=== PATIENT | female | born 1970 | race Caucasian/White ===

== ENCOUNTER 2016-07-23 18:33 | Emergency (ER) | payer OTHER ==
[~2016-07-23] VITALS: Ht 154.9 cm; Wt 63.5 kg
[2016-07-23 18:35] VITALS: BP 130/86; PULSE 74; RESP 20; TEMP 98; O2SAT 100
--- NOTE | 2016-07-23 20:18 | PD ---
HPI Chief Complaint: Seizure Time Seen by Provider: 20:18 Travel History International Travel<30 days: No Contact w/Intl Traveler<30days: No Traveled to known affect area: No History of Present Illness HPI 45-year-old female with history of seizures presents to the ED for evaluation approximately 7 hours following a witnessed seizure. The patient's boyfriend is at bedside and helps to provide a history. He states he witnessed the patient becomes tense and nonresponsive. He states that he guided her to the ground but she fell onto her outstretched arms and hit her head on the wall. States that the tension and unresponsiveness lasted approximately 3-4 minutes before resolving spontaneously. He states that the patient was confused for approximately 30 seconds to 1 minute following this episode. On presentation the patient endorses bilateral wrist pain, pain in the posterior head. She also complains of numbness and tingling of the second digit of the right hand and second digit of the right foot. She denies headache, dizziness, vision changes , chest pain, SOB, abdominal pain, N/V, dysuria, hematuria, weakness or limitation to ROM of the extremities bilaterally. She states that she initially was feeling "fine" and did not want to seek treatment. However, during the course of the day her pains got worse so she came to the ED. She states that she took her last Ativan today and has been unable to find a provider to refill it. She endorses compliance with prescribed Ativan and Topimax. She does not currently have a neurologist. PFSH Past Medical History Respiratory: Yes (ASTHMA) Social History Tobacco Use: Yes Allergies-Medications (Allergen,Severity, Reaction): Coded Allergies: No Known Allergies (Unverified , 07/23/16) Reported Meds & Prescriptions Reported Meds & Active Scripts Active Lorazepam 1 Mg Tab 1 Mg PO BID Reported Topamax (Topiramate) 100 Mg Tab 100 Mg PO BID Ativan (Lorazepam) 1 Mg Tab 1 Mg PO Q8H PRN Review of Systems Except as stated in HPI: all other systems reviewed are Neg Physical Exam Narrative GENERAL: Well-nourished, well-developed white female in no acute distress. SKIN: Warm and dry. There is tender ecchymosis of the posterior occiput. There is a old, superficial, crusted, linear abrasion on the back. There is a faint ecchymosis under the right eye. Thorough evaluation reveals no other edema, ecchymosis, abrasion, or laceration of the skin. Multiple tattoos. HEAD: Normocephalic. No raccoon eyes or gomez sign. ++ tenderness to palpation of the skull. No bony step-offs. No tenderness to palpation of the facial bones. No malocclusion of the teeth. EYES: No scleral icterus. No injection or drainage. PERRLA. EOMI. ENT: Pearly cardoza tympanic membrane is bilaterally. Nasal mucosa is moist. Oropharynx without erythema, edema or exudate. NECK: Supple, trachea midline. No JVD or lymphadenopathy. No midline tenderness to palpation. Patient retains full, active, painless range of motion of the neck. CARDIOVASCULAR: Regular rate and rhythm without murmurs, gallops, or rubs. 2+ DP and radial pulses bilaterally. RESPIRATORY: Breath sounds clear and equal bilaterally. No accessory muscle use. GASTROINTESTINAL: Abdomen soft, non-tender, nondistended. + Bowel sounds MUSCULOSKELETAL: No cyanosis, or edema. No tenderness to palpation or limitations to range of motion of the joints of the upper and lower extremities bilaterally. NEUROLOGICAL: Awake and alert. Cranial nerves II through XII intact. Motor and sensory grossly within normal limits. 5/5 muscle strength in all muscle groups. Normal speech. BACK: Nontender without obvious deformity. No CVA tenderness. No midline tenderness. Data Data Last Documented VS Vital Signs Date Time Temp Pulse Resp B/P Pulse Ox O2 Delivery O2 Flow Rate FiO2 07/23/16 20:53 18 98 Room Air 07/23/16 20:53 72 07/23/16 18:35 98.0 130/86 Orders Wrist, Complete ([id number]) (07/23/16 20:39) Wrist, Complete ([id number]) (07/23/16 20:39) Ct Brain W/O Iv Contrast(Rout) (07/23/16 20:39) Complete Blood Count With Diff (07/23/16 20:39) Ecg Monitoring (07/23/16 20:39) Iv Access Insert/Monitor (07/23/16 20:39) Oximetry (07/23/16 20:39) Comprehensive Metabolic Panel (07/23/16 20:39) Sodium Chlor 0.9% 1000 Ml Inj (Ns 1000 M (07/23/16 20:39) Sodium Chloride 0.9% Flush (Ns Flush) (07/23/16 20:45) Urinalysis - C+S If Indicated (07/23/16 20:39) Lorazepam Inj (Ativan Inj) (07/23/16 22:15) Labs Laboratory Tests Test 07/23/16 07/23/16 20:20 20:50 Urine Color YELLOW Urine Turbidity HAZY Urine pH 6.5 Urine Specific Alexander 1.018 Urine Protein NEG mg/dL Urine Glucose (UA) NEG mg/dL Urine Ketones NEG mg/dL Urine Occult Blood NEG Urine Nitrite NEG Urine Bilirubin NEG Urine Urobilinogen LESS THAN 2.0 MG/DL Urine Leukocyte Esterase NEG Urine Squamous Epithelial <1 /hpf Cells Microscopic Urinalysis Comment CULT NOT INDICATED White Blood Count 10.8 TH/MM3 Red Blood Count 4.85 MIL/MM3 Hemoglobin 11.0 GM/DL Hematocrit 36.0 % Mean Corpuscular Volume 74.2 FL Mean Corpuscular Hemoglobin 22.6 PG Mean Corpuscular Hemoglobin 30.4 % Concent Red Cell Distribution Width 18.9 % Platelet Count 211 TH/MM3 Mean Platelet Volume 8.9 FL Neutrophils (%) (Auto) 57.9 % Lymphocytes (%) (Auto) 31.9 % Monocytes (%) (Auto) 8.3 % Eosinophils (%) (Auto) 1.3 % Basophils (%) (Auto) 0.6 % Neutrophils # (Auto) 6.2 TH/MM3 Lymphocytes # (Auto) 3.4 TH/MM3 Monocytes # (Auto) 0.9 TH/MM3 Eosinophils # (Auto) 0.1 TH/MM3 Basophils # (Auto) 0.1 TH/MM3 CBC Comment AUTO DIFF Differential Comment AUTO DIFF CONFIRMED Platelet Estimate NORMAL Platelet Morphology Comment NORMAL Ovalocytes 1+ Sodium Level 145 MEQ/L Potassium Level 4.0 MEQ/L Chloride Level 115 MEQ/L Carbon Dioxide Level 25.3 MEQ/L Anion Gap 5 MEQ/L Blood Urea Nitrogen 13 MG/DL Creatinine 0.87 MG/DL Estimat Glomerular Filtration 70 ML/MIN Rate Random Glucose 92 MG/DL Calcium Level 8.3 MG/DL Total Bilirubin 0.2 MG/DL Aspartate Amino Transf 13 U/L (AST/SGOT) Alanine Aminotransferase 24 U/L (ALT/SGPT) Alkaline Phosphatase 50 U/L Total Protein 6.6 GM/DL Albumin 2.9 GM/DL MDM Medical Decision Making Medical Screen Exam Complete: Yes Emergency Medical Condition: Yes Differential Diagnosis Seizure versus contusion versus wrist fracture versus skull fracture versus ICH versus malingering versus other Narrative Course 45-year-old female with history of seizures presents to the ED for evaluation approximately 7 hours following a witnessed seizure. The patient's boyfriend is at bedside and helps to provide a history. He states he witnessed the patient becomes tense and nonresponsive for approximately 3-4 minutes before resolving spontaneously.. He states that he guided her to the ground but she fell onto her outstretched arms and hit her head on the wall. Describes a postictal period lasting approximately 30 seconds to 1 minute. On presentation the patient endorses bilateral wrist pain, pain in the posterior head, numbness and tingling of the second digits of the right hand and right foot. She denies headache, dizziness, vision changes, chest pain, SOB, abdominal pain, N/V, dysuria, hematuria, weakness or limitation to ROM of the extremities bilaterally. She endorses compliance with prescribed Ativan and Topimax. She does not currently have a neurologist, took her last does of Ativan today. Vitals reviewed. Physical exam reveals a white female in no acute distress. Some tender ecchymosis to the posterior occipit, faint ecchymosis under the right eye, bruising of bilateral palms with snuffbox tenderness. No limitations or range of motion of the wrist. She is not postictal. IV was established. Patient was placed on continuous monitoring. She was administered 0.5 mg Ativan. No concerning abnormalities of CBC, CMP and UA. Head CT normal per radiology read. Bilateral wrist x-rays without evidence of acute bony injury per radiology read. I reviewed [facility] and the patient was receiving Ativan steadily until December from a single provider. Her account of moving out of state for a few months and returning does seem reasonable to me. She has primary care and is awaiting neurology referral. I'll prescribe 15 day supply of Ativan. I informed the patient that these medications are only provided at the discretion of the provider and that it's highly unlikely she would be able to get a refill of these medications through the ED at a future date. She indicated understanding and is agreeable to the care plan. Patient is stable discharged home. Diagnosis Primary Impression: Seizure Additional Impressions: Medication refill Contusion of scalp, initial encounter Referrals: Neurologist Patient Instructions: Contusion in Adults (ED), General Instructions, Recurrent Seizures in Adults (ED) Additional Instructions: Rest, hydrate. Return to normal, gentle activity as tolerated. Take Topamax as prescribed. Take Ativan 1 mg twice a day. Follow-up with the neurologist as discussed. Return to the ED for any urgent or emergent medical condition. Med/Other Pt SpecificInfo: Prescription(s) given Scripts Lorazepam 1 Mg Tab1 Mg PO BID #30 TAB Ref 0 Prov:Shakira Dorman MD 07/23/16 Disposition: 01 DISCHARGE HOME Condition: Stable Ashely Tam Jul 23, 2016 20:18 Return to the ED for any urgent or emergent medical condition. Med/Other Pt SpecificInfo: Prescription(s) given Scripts Lorazepam 1 Mg Tab1 Mg PO BID #30 TAB Ref 0 Prov:Shakira Dorman MD 07/23/16 Disposition: 01 DISCHARGE HOME Condition: Stable Ashely Tam Jul 23, 2016 20:18
[2016-07-23] MEDS ORDERED: SODIUM CHLOR 0.9% 1000 ML INJ 1,000 ML IV ONE (20:39)
[2016-07-23] MEDS ORDERED: SODIUM CHLORIDE 0.9% FLUSH 10 ML FLUSH IVF PRN (20:45)
[2016-07-23 20:53] VITALS: RESP 18; O2SAT 98
[2016-07-23] MEDS ORDERED: TOPA100T11 PO (21:13)
[2016-07-23] MEDS ORDERED: LORA-474 PO (21:13)
--- NOTE | 2016-07-23 21:32 | RADRPT ---
EXAM DATE/TIME: 07/23/2016 21:13 [facility] COMPARISON: No previous studies available for comparison. INDICATIONS : Seizure today. RADIATION DOSE: 40.92 CTDIvol (mGy) MEDICAL HISTORY : Seizures. Asthma. SURGICAL HISTORY : None. ENCOUNTER: Initial ACUITY: 1 day PAIN SCALE: 0/10 LOCATION: cranial TECHNIQUE: Multiple contiguous axial images were obtained of the head. Using automated exposure control and adj ustment of the mA and/or kV according to patient size, radiation dose was kept as low as reasonably a chievable to obtain optimal diagnostic quality images. FINDINGS: CEREBRUM: The ventricles are normal for age. No evidence of midline shift, mass lesion, hemorrhage or acute in farction. No extra-axial fluid collections are seen. POSTERIOR FOSSA: The cerebellum and brainstem are intact. The 4th ventricle is midline. The cerebellopontine angle i s unremarkable. EXTRACRANIAL: The visualized portion of the orbits is intact. SKULL: The calvaria is intact. No evidence of skull fracture. CONCLUSION: Negative noncontrast CT brain. Jackson Murphy MD on July 23, 2016 at 21:30 Board Certified Radiologist. This report was verified electronically.
--- NOTE | 2016-07-23 21:32 | RADRPT ---
EXAM DATE/TIME: 07/23/2016 21:08 [facility] COMPARISON: No previous studies available for comparison. INDICATIONS : Pain from fall. MEDICAL HISTORY : None. SURGICAL HISTORY : None. ENCOUNTER: Initial ACUITY: 1 day PAIN SCORE: 4/10 LOCATION: Right wrist. FINDINGS: Three view examination of the right wrist demonstrates no soft tissue swelling, dislocation, or fract ure. The carpal bones are in normal alignment. The joint spaces are maintained. Incidental note of negative ulnar variance. Bony mineralization is normal. CONCLUSION: No evidence of recent injury. Jackson Murphy MD on July 23, 2016 at 21:29 Board Certified Radiologist. This report was verified electronically.
[2016-07-23 21:34] LABS: AUTOMATED NEUTROPHIL # 6.2 TH/MM3 (1.8-7.7); BASOPHIL # 0.1 TH/MM3 (0-0.2); BASOPHIL % 0.6 % (0.0-2.0); EOSINOPHIL # 0.1 TH/MM3 (0-0.4); EOSINOPHIL % 1.3 % (0.0-4.0); LYMPH % 31.9 % (9.0-44.0); LYMPHOCYTE # 3.4 TH/MM3 (1.0-4.8); MEAN CELL VOLUME 74.2 FL (80.0-100.0); MEAN CORPUSCULAR HEMOGLOBIN 22.6 PG (27.0-34.0); MEAN CORPUSCULAR HGB CONC 30.4 % (32.0-36.0); MONO % 8.3 % (0.0-8.0); NEUT % 57.9 % (16.0-70.0); PLATELET COUNT 211 TH/MM3 (150-450); RED BLOOD COUNT 4.85 MIL/MM3 (4.00-5.30); RED CELL DISTRIBUTION WIDTH 18.9 % (11.6-17.2); WHITE BLOOD COUNT 10.8 TH/MM3 (4.0-11.0)
[2016-07-23 21:37] LABS: HEMO FLAGS AUTO DIFF
--- NOTE | 2016-07-23 21:40 | RADRPT ---
EXAM DATE/TIME: 07/23/2016 21:08 [facility] COMPARISON: No previous studies available for comparison. INDICATIONS : Pain from fall. MEDICAL HISTORY : None. SURGICAL HISTORY : None. ENCOUNTER: Initial ACUITY: 1 day PAIN SCORE: 4/10 LOCATION: Left wrist. FINDINGS: Three view examination of the left wrist demonstrates no soft tissue swelling, dislocation, or fractu re. The carpal bones are in normal alignment. Negative ulnar variance. The joint spaces are mainta ined. Bony mineralization is normal. CONCLUSION: No evidence of recent bony injury. Jackson Murphy MD on July 23, 2016 at 21:38 Board Certified Radiologist. This report was verified electronically.
[2016-07-23 21:41] LABS: BLOOD, URINE NEG (NEG); COMMENT (UR) CULT NOT INDICATED; CULTURE IF INDICATED CULT NOT INDICATED; GLUCOSE,URINE NEG (NEG); KETONE, URINE NEG (NEG); NITRITE,URINE NEG (NEG); PH, URINE 6.5 (5.0-8.5); SQUAMOUS EPITHELIAL CELL URINE <1 /hpf (0-5); URINE COLOR YELLOW (YELLW/STRAW)
[2016-07-23 21:54] LABS: ANION GAP 5 MEQ/L (5-15); BICARBONATE 25.3 MEQ/L (21.0-32.0); BLOOD UREA NITROGEN 13 MG/DL (7-18); CHLORIDE 115 MEQ/L (98-107); GLOMERULAR FILTRATION RATE 70 ML/MIN (>89); SODIUM (NA) 145 MEQ/L (136-145)
[2016-07-23 21:59] LABS: ALKALINE PHOSPHATASE 50 U/L (45-117); ALT (GPT) 24 U/L (10-53); AST (GOT) 13 U/L (15-37); TOTAL BILIRUBIN ADULT 0.2 MG/DL (0.2-1.0)
[2016-07-23 22:01] LABS: OVALOCYTES 1+ (NORMAL); PLATELET ESTIMATE SMEAR NORMAL (NORMAL); PLATELET MORPHOLOGY NORMAL (NORMAL); SCAN/DIFF AUTO DIFF CONFIRMED
[2016-07-23] MEDS ORDERED: LORA1TAB12 PO (22:10)
[2016-07-23] MEDS ORDERED: LORazepam 2 MG/ML VIAL IM ONE (22:15)
== END 2016-07-24 00:01 | disposition home or self-care (01) ==
LOC: NEPC 18:33
DX: R56.9 Unspecified convulsions (principal); S00.03XA Contusion of scalp, initial encounter; W18.39XA Other fall on same level, initial encounter; Y92.009 Unspecified place in unspecified non-institutional (private) residence as the place of occurrence of the external cause; Z72.0 Tobacco use
CPT/HCPCS: 70450; 73110; 80053; 81001; 85025; 96360; 96372; 99284; J2060; J7030

== ENCOUNTER 2016-08-12 13:22 | Emergency (ER) | payer MEDICAID, OTHER ==
[~2016-08-12] VITALS: Ht 154.9 cm; Wt 67.0 kg
[~2016-08-12 13:22] MED LIST: LORA-474 PO; LORA1TAB12 PO; TOPA100T11 PO
[2016-08-12 13:24] VITALS: BP 126/79; PULSE 98; RESP 14; TEMP 98.2; O2SAT 99
[2016-08-12 14:24] LABS: AUTOMATED NEUTROPHIL # 5.8 TH/MM3 (1.8-7.7); BASOPHIL # 0.1 TH/MM3 (0-0.2); BASOPHIL % 0.6 % (0.0-2.0); EOSINOPHIL # 0.2 TH/MM3 (0-0.4); EOSINOPHIL % 1.7 % (0.0-4.0); HEMATOCRIT 36.7 % (35.0-46.0); LYMPH % 34.3 % (9.0-44.0); LYMPHOCYTE # 3.5 TH/MM3 (1.0-4.8); MEAN CELL VOLUME 72.6 FL (80.0-100.0); MEAN CORPUSCULAR HEMOGLOBIN 22.9 PG (27.0-34.0); MEAN CORPUSCULAR HGB CONC 31.6 % (32.0-36.0); MONO % 6.3 % (0.0-8.0); NEUT % 57.1 % (16.0-70.0); PLATELET COUNT 282 TH/MM3 (150-450); RED BLOOD COUNT 5.06 MIL/MM3 (4.00-5.30); RED CELL DISTRIBUTION WIDTH 18.1 % (11.6-17.2); WHITE BLOOD COUNT 10.2 TH/MM3 (4.0-11.0)
[2016-08-12 14:27] LABS: HEMO FLAGS AUTO DIFF
[2016-08-12] MEDS ORDERED: HYDR-3133 PO (14:32)
--- NOTE | 2016-08-12 14:33 | PD ---
HPI Chief Complaint: Seizure Time Seen by Provider: 13:49 Travel History International Travel<30 days: No Contact w/Intl Traveler<30days: No Traveled to known affect area: No History of Present Illness HPI This is a 45-year-old female who presents to the emergency department reporting that she's been having seizures. Her boyfriend says that she's had 3 seizures, one overnight, one at [facility] and then one here in the emergency department where she flails her arms and legs and asked the. She is not sleepy afterwards. She says she's had seizures ever since she was child. She takes Ativan and that's the only thing that works. Currently she doesn't have a neurologist that she's been unable to fill her Ativan. She is also on Topamax. She has a history of depression and anxiety. She says the Keppra and Dilantin specifically both do not help her seizures. PFSH Past Medical History Anxiety: Yes Depression: Yes Respiratory: Yes (ASTHMA) Immunizations Current: Yes Seizures: Yes ?: Not LMP: 08/12/16 Social History Alcohol Use: No Tobacco Use: Yes Substance Use: No Allergies-Medications (Allergen,Severity, Reaction): Coded Allergies: No Known Allergies (Unverified , 07/23/16) Reported Meds & Prescriptions Reported Meds & Active Scripts Active Lorazepam 1 Mg Tab 1 Mg PO BID Reported Topamax (Topiramate) 100 Mg Tab 100 Mg PO BID Review of Systems Except as stated in HPI: all other systems reviewed are Neg Physical Exam Narrative GENERAL:Well appearing, no acute distress SKIN: Focused skin assessment warm and dry. HEAD: Atraumatic. Normocephalic. EYES: Pupils equal and round. No injection or drainage. ENT: Moist mucous membranes NECK: Trachea midline. CARDIOVASCULAR: Regular rate and rhythm. No murmur appreciated. RESPIRATORY: Clear to auscultation. Breath sounds equal bilaterally. GASTROINTESTINAL: Abdomen soft, non-tender, nondistended. MUSCULOSKELETAL: No obvious deformities. NEUROLOGICAL: Awake and alert. No obvious cranial nerve deficits. Moving all extremities. PSYCHIATRIC: Appropriate mood and affect; insight and judgment normal. Data Data Last Documented VS Vital Signs Date Time Temp Pulse Resp B/P Pulse Ox O2 Delivery O2 Flow Rate FiO2 08/12/16 13:24 98.2 98 14 126/79 99 Orders Complete Blood Count With Diff (08/12/16 13:52) Comprehensive Metabolic Panel (08/12/16 13:52) Magnesium (Mg) (08/12/16 13:52) ^ Insert Iv (08/12/16 13:52) Hydroxyzine Hcl Inj (Vistaril Inj) (08/12/16 14:15) Labs Laboratory Tests Test 08/12/16 14:10 White Blood Count 10.2 TH/MM3 Red Blood Count 5.06 MIL/MM3 Hemoglobin 11.6 GM/DL Hematocrit 36.7 % Mean Corpuscular Volume 72.6 FL Mean Corpuscular Hemoglobin 22.9 PG Mean Corpuscular Hemoglobin 31.6 % Concent Red Cell Distribution Width 18.1 % Platelet Count 282 TH/MM3 Mean Platelet Volume 8.7 FL Neutrophils (%) (Auto) 57.1 % Lymphocytes (%) (Auto) 34.3 % Monocytes (%) (Auto) 6.3 % Eosinophils (%) (Auto) 1.7 % Basophils (%) (Auto) 0.6 % Neutrophils # (Auto) 5.8 TH/MM3 Lymphocytes # (Auto) 3.5 TH/MM3 Monocytes # (Auto) 0.6 TH/MM3 Eosinophils # (Auto) 0.2 TH/MM3 Basophils # (Auto) 0.1 TH/MM3 CBC Comment AUTO DIFF MDM Medical Decision Making Medical Screen Exam Complete: Yes Emergency Medical Condition: Yes Interpretation(s) Afebrile, mild tachycardia, normotensive No leukocytosis Differential Diagnosis Seizure, electrolyte abnormality, panic attack Narrative Course This is a 45-year-old female who presents to the emergency department with reported seizures. Here in the emergency department she had an episode where she was flailing her arms and legs, grabbing at her face, with her eyes open, awake, without any postictal period or loss of bowel or bladder. This looked more like a panic attack to me than a true seizure. She was here 2 weeks ago and requested a refill of Ativan and was given a prescription but was told he would not refill controlled substances in the emergency department in the future , however today she returns for refill. I offered her Dilantin and Keppra but she says they don't work for her seizures. We agreed to try hydroxyzine for her anxiety. I don't think any further testing is warranted. Patient will be discharged home. She has a referral to [facility]. Diagnosis Primary Impression: Panic attack Patient Instructions: General Instructions Additional Instructions: If you develop severe chest pain, shortness of breath, sweating, lightheadedness , dizziness or difficulty breathing return to the emergency department immediately. Followup with your primary care physician in 2-3 days if your symptoms are not resolved. Med/Other Pt SpecificInfo: Prescription(s) given Scripts Hydroxyzine HCl 25 Mg Tab25 Mg PO QID PRN (ANXIETY) #15 TAB Ref 0 Prov:Jo-Ann Ceja MD 08/12/16 Disposition: DISCHARGE HOME Condition: Stable Jo-Ann Ceja MD August 12, 2016 14:33
[2016-08-12 14:36] LABS: ALKALINE PHOSPHATASE 102 U/L (45-117); TOTAL BILIRUBIN ADULT 0.3 MG/DL (0.2-1.0)
[2016-08-12 14:51] LABS: ALT (GPT) 86 U/L (10-53); ANION GAP 10 MEQ/L (5-15); AST (GOT) 40 U/L (15-37); BICARBONATE 24.4 MEQ/L (21.0-32.0); BLOOD UREA NITROGEN 18 MG/DL (7-18); CHLORIDE 106 MEQ/L (98-107); GLOMERULAR FILTRATION RATE 59 ML/MIN (>89); MAGNESIUM 2.2 MG/DL (1.5-2.5); SODIUM (NA) 140 MEQ/L (136-145)
[2016-08-12 14:52] LABS: POTASSIUM 3.4 MEQ/L (3.5-5.1)
[2016-08-12 15:32] LABS: PLATELET ESTIMATE SMEAR NORMAL (NORMAL); PLATELET MORPHOLOGY NORMAL (NORMAL)
[2016-08-12 15:33] LABS: SCAN/DIFF AUTO DIFF CONFIRMED
== END 2016-08-12 15:51 | disposition home or self-care (01) ==
LOC: NEPD 13:22
DX: F41.0 Panic disorder [episodic paroxysmal anxiety] (principal); J45.909 Unspecified asthma, uncomplicated; Z72.0 Tobacco use
CPT/HCPCS: 80053; 83735; 85025; 96372; 99284; J3410

== ENCOUNTER 2016-11-16 08:03 | Emergency (ER) | payer MEDICAID ==
[~2016-11-16] VITALS: Ht 154.9 cm; Wt 65.0 kg
[~2016-11-16 08:03] MED LIST changes: +HYDR-3133 PO; -LORA-474 PO
[2016-11-16 08:05] VITALS: BP 91/50; PULSE 54; RESP 16; TEMP 98.3; O2SAT 97
[2016-11-16] MEDS ORDERED: FURO1TAB60 PO (08:32)
[2016-11-16 08:39] VITALS: O2SAT 99
--- NOTE | 2016-11-16 08:42 | PD ---
HPI Chief Complaint: Syncope/Near-Syncope Time Seen by Provider: 08:31 Travel History International Travel<30 days: No Contact w/Intl Traveler<30days: No Traveled to known affect area: No History of Present Illness HPI 46-year-old female complains of dizziness, lightheadedness and near-syncope. Patient states that she has history of fluid retention and took Lasix 40 mg last night. Patient states that she did not eat anything this morning. Patient states that she had a sip of coffee this morning. Patient states that she took a walk and feeling dizzy lightheadedness and near-syncope. EMS was called. Patient was found to be hypotensive and bradycardic. Patient was given 500 cc IV bolus on the way to the ED. Patient states that she feeling better now. Patient denies any headache. Patient denies any visual change. Patient denies any chest pain or shortness of breath. Patient denies abdominal pain. Patient denies any focal weakness or numbness of extremity. Patient on Topamax 100 mg twice a day. Patient denies any alcohol or drug abuse. Patient denies any history of TIA or CVA. PFSH Past Medical History Anxiety: Yes Depression: Yes Respiratory: Yes (ASTHMA) Immunizations Current: Yes Seizures: Yes ?: Not LMP: 09/30/16 Social History Alcohol Use: No Tobacco Use: Yes Substance Use: No Allergies-Medications (Allergen,Severity, Reaction): Coded Allergies: No Known Allergies (Unverified , 11/16/16) Reported Meds & Prescriptions Reported Meds & Active Scripts Active Potassium Chloride ER (Potassium Chloride) 10 Meq Cap 10 Meq PO DAILY Reported Lasix (Furosemide) 40 Mg Tab 40 Mg PO DAILY PRN Topamax (Topiramate) 100 Mg Tab 200 Mg PO BID Review of Systems General / Constitutional: No: Fever Eyes: No: Visual changes HENT: Positive: Lightheadedness, No: Headaches Cardiovascular: No: Chest Pain or Discomfort Respiratory: No: Shortness of Breath Gastrointestinal: No: Abdominal Pain Genitourinary: No: Dysuria Musculoskeletal: No: Pain Skin: No Rash Neurologic: No: Weakness Psychiatric: No: Depression Endocrine: No: Polydipsia Hematologic/Lymphatic: No: Easy Bruising Physical Exam Narrative GENERAL: Well-nourished, well-developed patient. SKIN: Focused skin assessment warm/dry. HEAD: Normocephalic. EYES: No scleral icterus. No injection or drainage. NECK: Supple, trachea midline. No JVD or lymphadenopathy. CARDIOVASCULAR: Regular rate and rhythm without murmurs, gallops, or rubs. RESPIRATORY: Breath sounds equal bilaterally. No accessory muscle use. GASTROINTESTINAL: Abdomen soft, non-tender, nondistended. MUSCULOSKELETAL: No cyanosis, or edema. BACK: Nontender without obvious deformity. No CVA tenderness. Neurologic exam normal. Data Data Last Documented VS Vital Signs Date Time Temp Pulse Resp B/P Pulse Ox O2 Delivery O2 Flow Rate FiO2 11/16/16 08:39 99 Room Air 11/16/16 08:05 98.3 54 16 91/50 Orders Electrocardiogram (11/16/16 08:36) Complete Blood Count With Diff (11/16/16 08:36) Comprehensive Metabolic Panel (11/16/16 08:36) Creatine Kinase (Cpk) (11/16/16 08:36) Troponin I (11/16/16 08:36) Prothrombin Time / Inr (Pt) (11/16/16 08:36) Act Partial Throm Time (Ptt) (11/16/16 08:36) Urinalysis - C+S If Indicated (11/16/16 08:36) Thyroid Stimulating Hormone (11/16/16 08:36) Chest, Single Ap (11/16/16 08:36) Iv Access Insert/Monitor (11/16/16 08:36) Ecg Monitoring (11/16/16 08:36) Oximetry (11/16/16 08:36) Sodium Chlor 0.9% 1000 Ml Inj (Ns 1000 M (11/16/16 08:45) Potassium Chloride (Kcl) (11/16/16 10:15) Potassium Chlor 20 Meq Premix (Kcl 20 Me (11/16/16 10:15) Labs Laboratory Tests Test 11/16/16 11/16/16 08:50 12:15 White Blood Count 6.8 TH/MM3 Red Blood Count 4.78 MIL/MM3 Hemoglobin 11.4 GM/DL Hematocrit 36.1 % Mean Corpuscular Volume 75.5 FL Mean Corpuscular Hemoglobin 23.8 PG Mean Corpuscular Hemoglobin 31.5 % Concent Red Cell Distribution Width 17.9 % Platelet Count 201 TH/MM3 Mean Platelet Volume 8.5 FL Neutrophils (%) (Auto) 66.4 % Lymphocytes (%) (Auto) 22.8 % Monocytes (%) (Auto) 8.1 % Eosinophils (%) (Auto) 2.0 % Basophils (%) (Auto) 0.7 % Neutrophils # (Auto) 4.5 TH/MM3 Lymphocytes # (Auto) 1.6 TH/MM3 Monocytes # (Auto) 0.6 TH/MM3 Eosinophils # (Auto) 0.1 TH/MM3 Basophils # (Auto) 0.0 TH/MM3 CBC Comment DIFF FINAL Differential Comment Prothrombin Time 11.0 SEC Prothromb Time International 1.0 RATIO Ratio Activated Partial 23.9 SEC Thromboplast Time Sodium Level 140 MEQ/L Potassium Level 2.9 MEQ/L Chloride Level 109 MEQ/L Carbon Dioxide Level 23.4 MEQ/L Anion Gap 8 MEQ/L Blood Urea Nitrogen 16 MG/DL Creatinine 1.06 MG/DL Estimat Glomerular Filtration 55 ML/MIN Rate Random Glucose 154 MG/DL Calcium Level 7.5 MG/DL Total Bilirubin 0.3 MG/DL Aspartate Amino Transf 79 U/L (AST/SGOT) Alanine Aminotransferase 73 U/L (ALT/SGPT) Alkaline Phosphatase 53 U/L Total Creatine Kinase 62 U/L Troponin I LESS THAN 0.02 NG/ML Total Protein 6.4 GM/DL Albumin 2.9 GM/DL Thyroid Stimulating Hormone 1.540 uIU/ML 3rd Gen Urine Color YELLOW Urine Turbidity CLEAR Urine pH 7.5 Urine Specific [place] 1.016 Urine Protein TRACE mg/dL Urine Glucose (UA) NEG mg/dL Urine Ketones NEG mg/dL Urine Occult Blood NEG Urine Nitrite NEG Urine Bilirubin NEG Urine Urobilinogen LESS THAN 2.0 MG/DL Urine Leukocyte Esterase NEG Urine RBC LESS THAN 1 /hpf Urine WBC 2 /hpf Urine Squamous Epithelial 1 /hpf Cells Urine Bacteria RARE /hpf Microscopic Urinalysis Comment CULT NOT INDICATED MDM Medical Decision Making Medical Screen Exam Complete: Yes Emergency Medical Condition: Yes Interpretation(s) 13 30 p.m. Orthostatic vital signs stable. Last Impressions Chest X-Ray 11/16/16 0836 Signed Impressions: Service Date/Time: October 08:56 - CONCLUSION: Midinspiratory exam with no acute cardiopulmonary disease. Farhan Jeter MD CBC hemoglobin 11.4. MCV 75.5. Potassium 2.9. Creatinine 1.06. GFR 55. Calcium 7.5. Cardiac enzymes are normal. UA is negative. Differential Diagnosis Differential diagnosis including vasovagal reaction, dehydration, electrolyte imbalance, TIA, CVA. Narrative Course 46-year-old female with near syncope. Patient took Lasix last night and did not drink much this morning. Patient was bradycardic and hypotensive. Patient was given IV fluid by EMS. Blood pressures improving. Normal saline solution 1 L IV bolus. KCl 40 mEq by mouth given. KCl 20 mEq IV given. Diagnosis Primary Impression: Hypokalemia Additional Impression: Near syncope Patient Instructions: General Instructions Additional Instructions: Encourage by mouth fluid. Take potassium as directed. Follow-up with personal physician. Return if persistent problem or worse. Advised patient not to take Lasix any more. Med/Other Pt SpecificInfo: Prescription(s) given Scripts Potassium Chloride ER 10 Meq Cap10 Meq PO DAILY #7 CAP Ref 0 Prov:Yamil Lewis MD 11/16/16 Disposition: 01 DISCHARGE HOME Condition: Stable Yamil Lewis MD Nov 16, 2016 08:42 Yamil Lewis MD Nov 16, 2016 08:42
[2016-11-16] MEDS ORDERED: SODIUM CHLOR 0.9% 1000 ML INJ 1,000 ML IV ONE (08:45)
[2016-11-16 09:00] VITALS: BP 104/74; PULSE 58; RESP 16; O2SAT 100
--- NOTE | 2016-11-16 09:12 | RADRPT ---
EXAM DATE/TIME: 11/16/2016 08:56 [place] COMPARISON: No previous studies available for comparison. INDICATIONS : Short of breath. MEDICAL HISTORY : Asthma. Seizures. SURGICAL HISTORY : None. ENCOUNTER: Initial ACUITY: 1 day PAIN SCORE: 0/10 LOCATION: Bilateral chest FINDINGS: A single AP erect view of the chest was obtained. The study is Midinspiratory with crowding of the luis fernando ng vasculature. There are no confluent infiltrates or effusions. The heart size is at the upper limit s of normal. The soft tissues and bony thorax are unremarkable. There are multiple overlying electroc ardiogram leads. CONCLUSION: Midinspiratory exam with no acute cardiopulmonary disease. Farhan Jeter MD on November 16, 2016 at 9:09 Board Certified Radiologist. This report was verified electronically.
[2016-11-16 09:26] LABS: AUTOMATED NEUTROPHIL # 4.5 TH/MM3 (1.8-7.7); BASOPHIL % 0.7 % (0.0-2.0); EOSINOPHIL # 0.1 TH/MM3 (0-0.4); HEMATOCRIT 36.1 % (35.0-46.0); HEMO FLAGS DIFF FINAL; LYMPH % 22.8 % (9.0-44.0); LYMPHOCYTE # 1.6 TH/MM3 (1.0-4.8); MEAN CELL VOLUME 75.5 FL (80.0-100.0); MEAN CORPUSCULAR HEMOGLOBIN 23.8 PG (27.0-34.0); MEAN CORPUSCULAR HGB CONC 31.5 % (32.0-36.0); MONO % 8.1 % (0.0-8.0); NEUT % 66.4 % (16.0-70.0); PLATELET COUNT 201 TH/MM3 (150-450); RED BLOOD COUNT 4.78 MIL/MM3 (4.00-5.30); RED CELL DISTRIBUTION WIDTH 17.9 % (11.6-17.2); WHITE BLOOD COUNT 6.8 TH/MM3 (4.0-11.0)
[2016-11-16 09:38] LABS: APTT (PATIENT) 23.9 SEC (24.3-30.1)
[2016-11-16 09:59] LABS: ALKALINE PHOSPHATASE 53 U/L (45-117); ALT (GPT) 73 U/L (10-53); ANION GAP 8 MEQ/L (5-15); AST (GOT) 79 U/L (15-37); BICARBONATE 23.4 MEQ/L (21.0-32.0); BLOOD UREA NITROGEN 16 MG/DL (7-18); CHLORIDE 109 MEQ/L (98-107); GLOMERULAR FILTRATION RATE 55 ML/MIN (>89); SODIUM (NA) 140 MEQ/L (136-145); TOTAL BILIRUBIN ADULT 0.3 MG/DL (0.2-1.0)
[2016-11-16 10:10] LABS: CREATINE KINASE 62 U/L (26-192)
[2016-11-16 10:11] LABS: POTASSIUM 2.9 MEQ/L (3.5-5.1)
[2016-11-16] MEDS ORDERED: POTASSIUM CHLOR 20 MEQ PREMIX 100 ML IV ONE (10:15)
[2016-11-16] MEDS ORDERED: POTASSIUM CHLORIDE 20 MEQ CONTROLLED RELEASE TAB PO ONE (10:15)
[2016-11-16 12:46] LABS: BACTERIA, URINE RARE /hpf; BLOOD, URINE NEG (NEG); COMMENT (UR) CULT NOT INDICATED; CULTURE IF INDICATED CULT NOT INDICATED; GLUCOSE,URINE NEG (NEG); KETONE, URINE NEG (NEG); NITRITE,URINE NEG (NEG); PH, URINE 7.5 (5.0-8.5); SQUAMOUS EPITHELIAL CELL URINE 1 /hpf (0-5); URINE COLOR YELLOW (YELLW/STRAW)
[2016-11-16] MEDS ORDERED: POTA10CA PO (13:35)
[2016-11-16 13:39] VITALS: BP 112/62; TEMP 98.2
--- NOTE | 2016-11-16 16:43 | EKG ---
Date Performed: 11/16/2016 Time Performed: 08:39:33 PTAGE: 46 years EKG: SINUS BRADYCARDIA BORDERLINE ECG WARNING: DATA QUALITY MAY AFFECT INTERPRETATION NO PREVIOUS TRACING DOCTOR: Zain Saleem Interpretating Date/Time 11/16/2016 16:41:30
== END 2016-11-16 14:14 | disposition home or self-care (01) ==
LOC: NEPE 08:03
DX: E87.6 Hypokalemia (principal); R55 Syncope and collapse; R00.1 Bradycardia, unspecified; R42 Dizziness and giddiness; J45.909 Unspecified asthma, uncomplicated; F41.9 Anxiety disorder, unspecified; F32.9 Major depressive disorder, single episode, unspecified; Z79.899 Other long term (current) drug therapy
CPT/HCPCS: 71010; 80053; 81001; 82550; 84443; 84484; 85025; 85610; 85730; 93005; 96361; 96365; 96366; 99285; J3480; J7030